=== PATIENT | female | born 1980 | race Caucasian/White ===

== ENCOUNTER → 2018-07-22 | Outpatient (CLI) | payer OTHER ==
[~2018-07-22] MED LIST: CALCIUM CARBON500 M1 PO; LEXAPRO20 MG PO; PREMARIN 1.251.25 MG PO; PREVACID 30MG30 MG PO; TOPROL XL25 MG PO; ZITHROMAX Z PA250 MG PO
== END ==
LOC: MC.RAD 06:57
DX: N60.02 Solitary cyst of left breast (principal)
CPT/HCPCS: G0279

== ENCOUNTER → 2019-02-13 | Outpatient (CLI) | payer OTHER | LOC: MC.RAD 09:48 | DX: N63.21 Unspecified lump in the left breast, upper outer quadrant (principal); N64.89 Other specified disorders of breast | CPT/HCPCS: G0279 ==

== ENCOUNTER → 2019-02-27 | Outpatient (CLI) | payer OTHER | LOC: MC.RAD 07:25 | DX: N63.20 Unspecified lump in the left breast, unspecified quadrant (principal); N64.89 Other specified disorders of breast ==

== ENCOUNTER → 2019-10-16 | Outpatient (CLI) | payer OTHER | LOC: MC.RAD 13:14 | DX: N64.89 Other specified disorders of breast (principal) | CPT/HCPCS: G0279 ==

== ENCOUNTER → 2021-06-08 | Outpatient (CLI) | payer OTHER | LOC: MC.RAD 13:49 | DX: Z12.31 Encounter for screening mammogram for malignant neoplasm of breast (principal); N63.10 Unspecified lump in the right breast, unspecified quadrant; N64.89 Other specified disorders of breast ==

== ENCOUNTER → 2021-06-22 | Outpatient (CLI) | payer OTHER | LOC: MC.RAD 12:30 | DX: N64.89 Other specified disorders of breast (principal) ==

== ENCOUNTER → 2021-12-21 | Outpatient (CLI) | payer OTHER | LOC: MC.RAD 13:41 | DX: N64.89 Other specified disorders of breast (principal) ==